=== PATIENT | female | born 1955 | race Caucasian/White ===

== ENCOUNTER 2016-02-17 10:24 | Day surgery (SDC) | payer OTHER ==
[~2016-02-17 10:24] MED LIST: ALLERGY RELIE15.8 ML BOTH NARES; AUGMENTIN875 MG PO; AZITHROMYCIN500 M1 PO; CARDIZEM120 MG PO; CENTRUM SILVER1 EAC4 PO; COUMADIN10 MG PO; DESYREL100 MG PO; DULERA 200 MCG/13 GM IH; HYDROCODON-ACE1 EAC8 PO; LISINOPRIL2.5 MG PO; MINITRAN1 EAC3 TD; MOBIC15 MG PO; PHENERGAN-CODE120 ML PO; PREDNISONE20 MG PO; PROVENTIL,2.5 MG/3 M IH; ULTRAM50 MG PO; ZOFRAN4 MG PO; ZOLOFT100 MG PO
== END 2016-02-17 11:57 | disposition home or self-care (01) ==
LOC: PAIN 10:24 → SDC 10:45 → PAIN 10:45
DX: M47.896 Other spondylosis, lumbar region (principal); M53.3 Sacrococcygeal disorders, not elsewhere classified; M54.5 Low back pain; I10 Essential (primary) hypertension; E78.5 Hyperlipidemia, unspecified; J44.9 Chronic obstructive pulmonary disease, unspecified; J45.909 Unspecified asthma, uncomplicated; G47.30 Sleep apnea, unspecified; I48.91 Unspecified atrial fibrillation; E66.9 Obesity, unspecified; R06.02 Shortness of breath; Z79.899 Other long term (current) drug therapy
CPT/HCPCS: J1030; J2250; J3010; S0020

== ENCOUNTER 2016-03-09 13:59 | Day surgery (SDC) | payer OTHER ==
[~2016-03-09] VITALS: Ht 162.6 cm; Wt 90.7 kg
== END 2016-03-09 15:49 | disposition home or self-care (01) ==
LOC: PAIN 13:59 → SDC 15:30 → PAIN 15:30
DX: M54.16 Radiculopathy, lumbar region (principal); M47.896 Other spondylosis, lumbar region; F41.1 Generalized anxiety disorder; I10 Essential (primary) hypertension; M79.7 Fibromyalgia
CPT/HCPCS: J2250; J3010

== ENCOUNTER 2016-04-20 12:56 | Day surgery (SDC) | payer OTHER ==
[~2016-04-20] VITALS: Ht 162.6 cm; Wt 90.9 kg
[2016-04-20 14:57] LABS: INTER. NORMALIZED RATIO 1.6
[2016-04-20 15:00] LABS: PROTHROMBIN TIME 16.7 (9.2-11.2)
== END 2016-04-20 15:40 | disposition home or self-care (01) ==
LOC: PAIN 12:56
PROVIDERS: Anesthesiology
DX: M46.1 Sacroiliitis, not elsewhere classified (principal); F41.9 Anxiety disorder, unspecified; G89.29 Other chronic pain; M54.5 Low back pain; M47.816 Spondylosis without myelopathy or radiculopathy, lumbar region; M53.3 Sacrococcygeal disorders, not elsewhere classified; M54.2 Cervicalgia; M79.1 Myalgia; I48.91 Unspecified atrial fibrillation; G43.909 Migraine, unspecified, not intractable, without status migrainosus; J45.909 Unspecified asthma, uncomplicated; Z98.1 Arthrodesis status; I10 Essential (primary) hypertension; Z86.718 Personal history of other venous thrombosis and embolism; J43.9 Emphysema, unspecified; D68.51 Activated protein C resistance; E78.5 Hyperlipidemia, unspecified; Z79.01 Long term (current) use of anticoagulants; Z88.8 Allergy status to other drugs, medicaments and biological substances; Z88.1 Allergy status to other antibiotic agents
CPT/HCPCS: 85610; J1030; J2250; J3010; S0020